=== PATIENT | female | born 1975 | race Caucasian/White ===

== ENCOUNTER → 2023-11-22 15:30 | Outpatient (REF) | payer OTHER, SELFPAY | LOC: HWRAD 15:30 | PROVIDERS: ATTENDING PHYSICIAN Physician Assistant Medical | DX: M54.50 Low back pain, unspecified (principal) | CPT/HCPCS: 72110 ==

== ENCOUNTER → 2023-12-13 09:25 | Outpatient (REF) | payer OTHER, SELFPAY | LOC: RAD 09:25 | PROVIDERS: ATTENDING PHYSICIAN Physician Assistant Medical | DX: E66.9 Obesity, unspecified (principal); R74.01 Elevation of levels of liver transaminase levels | CPT/HCPCS: 76700 ==